=== PATIENT | female | born 1995 | race Asian ===

== ENCOUNTER 2017-03-12 23:22 | Emergency (ER) | payer OTHER ==
[2017-03-13] MEDS ORDERED: Acetaminophen TAB* 325 MG PO ONE (01:56)
[2017-03-13] MEDS ORDERED: Ibuprofen TAB* 600 MG PO ONE (01:56)
[2017-03-13] MEDS ORDERED: Amoxicillin PO (*) 500 MG CAP PO ONE (01:56)
--- NOTE | 2017-03-13 02:00 | ED ---
Throat Pain/Nasal Congestion - HPI Summary HPI Summary: 21 female presents to ED with complaints of sore throat, fever and body aches that began yesterday and has worsened today. Patient has been taking Tylenol with last dose being around 2pm 03/12/17 that does improve fever, however it comes back. Denies difficulty breathing, chest pain, coughing and vomiting. Admits to having difficulty swallowing due to pain but is able. Has been drinking. Unknown sick contacts. Does attend college at [place]. No other complaints. PMHx significant for thyroiditis. - History of Current Complaint Chief Complaint: EDFever Time Seen by Provider: 03/13/17 01:40 Hx Obtained From: Patient Onset/Duration: Lasting Days - 2, Still Present, Worse Since Severity: Moderate Associated Signs And Symptoms: Positive: Dysphagia Cough: None - Epiglottits Risk Factors Epiglottis Risk Factors: Negative - Allergies/Home Medications Allergies/Adverse Reactions: Allergies Allergy/AdvReac Type Severity Reaction Status Date / Time No Known Allergies Allergy Verified 03/12/17 23:26 PMH/Surg Hx/FS Hx/Imm Hx Endocrine/Hematology History: Reports: Hx Thyroid Disease - thyroiditis Denies: Hx Diabetes Respiratory History: Denies: Hx Asthma - Surgical History Surgery Procedure, Year, and Place: n/a - Immunization History Immunizations Up to Date: Yes Infectious Disease History: No Infectious Disease History: Denies: Traveled Outside the [place] in Last 30 Days - Family History Known Family History: Positive: None - Social History Alcohol Use: Occasionally Substance Use Type: Reports: None Smoking Status (MU): Never Smoked Tobacco Review of Systems Positive: Fever, Chills, Fatigue Eyes: Negative Positive: Sore Throat Cardiovascular: Negative Respiratory: Negative Gastrointestinal: Negative Musculoskeletal: Negative Skin: Negative Positive: Headache All Other Systems Reviewed And Are Negative: Yes Physical Exam Triage Information Reviewed: Yes Vital Signs On Initial Exam: Initial Vitals Temp Pulse Resp BP Pulse Ox 100.6 F 110 16 119/62 100 03/12/17 23:24 03/12/17 23:24 03/12/17 23:24 03/12/17 23:24 03/12/17 23:24 temp noted, given tylenol, tachycardia however strep + Vital Signs Reviewed: Yes Appearance: Positive: Well-Nourished, Ill-Appearing, Pain Distress - mild with swallowing Skin: Positive: Warm, Skin Color Reflects Adequate Perfusion, Dry. Negative: Cold, Cyanosis @, Pale, Erythema @ Head/Face: Positive: Normal Head/Face Inspection Eyes: Positive: EOMI, SENAIT, Conjunctiva Clear ENT: Positive: Hearing grossly normal, Pharyngeal erythema, TMs normal, Tonsillar swelling, Tonsillar exudate, Other - airway patent, no sign of peritonsillar abscess. Negative: TM bulging, TM dull, TM red, Trismus, Muffled/ hoarse voice Dental: Positive: Cervical Lymphadenopathy Neck: Positive: Supple, Nontender Respiratory/Lung Sounds: Positive: Clear to Auscultation, Breath Sounds Present. Negative: Rales, Rhonchi, Wheezes Cardiovascular: Positive: Normal, RRR, Pulses are Symmetrical in both Upper and Lower Extremities. Negative: Murmur, Rub Abdomen Description: Positive: Nontender, No Organomegaly, Soft Bowel Sounds: Positive: Present Musculoskeletal: Positive: Normal, Strength/ROM Intact Neurological: Positive: Normal, Sensory/Motor Intact, Alert, Oriented to Person Place, Time Psychiatric: Positive: Affect/Mood Appropriate - [place] Coma Scale Coma Scale Total: 15 Diagnostics - Vital Signs Vital Signs Temp Pulse Resp BP Pulse Ox 03/13/17 01:24 99.9 F 100 16 102/53 100 03/13/17 00:16 101.3 F 03/12/17 23:27 100.6 F 110 16 119/62 100 03/12/17 23:24 100.6 F 110 16 119/62 100 - Laboratory Lab Results: Lab Results 03/13/17 Range/Units 00:46 Group A Strep Rapid Positive H (Negative) Lab Statement: Any lab studies that have been ordered have been reviewed, and results considered in the medical decision making process. EENT Course/Dx - Course Course Of Treatment: according to [facility] criteria and with positive strep culture will treat for streptococcal phayrnigitis. Given tylenol while in ED and first dose of amoxicillin. continue at home. educated and instructed on proper alternating use of ibu/tylenol for fever/pain/body aches. fluids, gargle salt water, chloraseptic spray. aware of worsening signs and symptoms. follow up with pcp. no concern for any other complications of strep at this time, symptoms just began, young and healthy, no other complaints. recommended to take ibuprofen when she gets home, before bed. - Differential Diagnoses Differential Diagnoses: Influenza, Pharyngitis, Sinusitis, URI/Bronchitis - Diagnoses Provider Diagnoses: Strep pharyngitis Discharge - Discharge Plan Condition: Stable Disposition: HOME Prescriptions: Amoxicillin PO (*) [Amoxicillin 500 MG CAP*] 500 mg PO Q12H #19 cap Patient Education Materials: Strep Throat (ED) Forms: *School Release Referrals: Sapna Hart NP [Primary Care Provider] - Additional Instructions: Take prescribed antibiotic (amoxicillin) as directed for infection. one in morning and one at night. Eat vietnamese yogurt while taking this medication. Take until entire dose is finished, even if symptoms improve. Continue taking Advil and Tylenol alternating every 2 hours. Advil and then two hours later tylenol, while fever lasts for the next 2-3 days. They also help with pain. Recommend drinking plenty of fluids, cold foods/fluids to help soothe throat. Avoid hot and spicy food/drink. Recommend gargling with salt water a few times daily. Also may want to try Chloraseptic spray over the counter to help soothe sore throat. If you develop worsening symptoms or new symptoms please seek medical attention promptly, as discussed. Follow up with primary care provider to ensure improvement.
[2017-03-13 02:19] VITALS: BP 103/53
== END 2017-03-13 02:20 | disposition home or self-care (01) ==
LOC: ED 23:22
DX: J02.0 Streptococcal pharyngitis (principal); E06.9 Thyroiditis, unspecified
CPT/HCPCS: 87651; 99283; A9270-GY

== ENCOUNTER 2017-03-20 22:18 | Emergency (ER) | payer OTHER ==
[2017-03-21 02:46] LABS: Hematocrit 39 % (35-47); Hemoglobin 13.1 g/dl (12.0-16.0); Mean Corpuscular HGB Conc 34 g/dl (31-36); Mean Corpuscular Hemoglobin 28 pg (27-31); Mean Corpuscular Volume 84 fL (80-97); Mean Platelet Volume 8 um3 (7.4-10.4); Red Blood Count 4.62 10^6/ul (4.0-5.4); Red Cell Distribution Width 13 % (10.5-15); White Blood Count 10.4 10^3/ul (3.5-10.8)
[2017-03-21 02:56] LABS: Manual Entry Verification ABI0007; Mono Internal Control QC Line Present
[2017-03-21 03:01] LABS: Albumin 4.3 g/dL (3.2-5.2); C Reactive Protein 1.78 mg/L (< 5.00); Calcium 9.5 mg/dL (8.6-10.3); EGFR African American 156.3 (>60); EGFR Non-African American 121.5 (>60); Globulin 3.1 g/dL (2-4); Potassium 3.8 mmol/L (3.5-5.0); Total Bilirubin 0.7 mg/dL (0.2-1.0); Total Protein 7.4 g/dL (6.4-8.9)
[2017-03-21 03:15] LABS: TSH (Thyroid Stimulating Horm) 0.03 mcIU/mL (0.34-5.60)
[2017-03-21] MEDS ORDERED: Azithromycin TAB* 250 MG PO ONE (03:18)
--- NOTE | 2017-03-21 03:24 | ED ---
Tyler De Dios Benjamin, scribed for Wanda Sena MD on 03/21/17 at 0210 . Skin Complaint - HPI Summary HPI Summary: 21yo female who was dxed strep throat 1 week ago, with fever, fatigue, and weakness. Pt was rxed amoxicillin for her strep throat. Pt noticed red spots all over her body that itches few days after taking amoxicillin. Pt was recently dx with Sierra and hyperthyroidism and has an appointment scheduled with Dr. Wan Dennis next week. - History of Current Complaint Chief Complaint: EDRashSkinAbscess Time Seen by Provider: 03/21/17 01:17 Stated Complaint: RASH Hx Obtained From: Patient Onset/Duration: Started Days Ago, Atraumatic, Still Present Timing: Constant Onset Severity: Mild Current Severity: Moderate Pain Intensity: 0 Pain Scale Used: 0-10 Numeric Skin Location: Diffuse Character: Hives, Redness Aggravating Symptom(s): Nothing Alleviating Symptom(s): Nothing Associated Signs & Symptoms: Fever - Allergy/Home Medications Allergies/Adverse Reactions: Allergies Allergy/AdvReac Type Severity Reaction Status Date / Time No Known Allergies Allergy Verified 03/20/17 22:30 PMH/Surg Hx/FS Hx/Imm Hx Endocrine/Hematology History: Reports: Hx Thyroid Disease - thyroiditis Denies: Hx Diabetes Respiratory History: Denies: Hx Asthma - Surgical History Surgery Procedure, Year, and Place: n/a Infectious Disease History: No Infectious Disease History: Denies: Traveled Outside the [place] in Last 30 Days - Family History Known Family History: Positive: Diabetes - Social History Occupation: Student Lives: Alone Alcohol Use: Occasionally Substance Use Type: Reports: None Smoking Status (MU): Never Smoked Tobacco Review of Systems Positive: Fever. Negative: Chills Eyes: Negative Positive: Sore Throat Cardiovascular: Negative Respiratory: Negative Gastrointestinal: Negative Genitourinary: Negative Musculoskeletal: Negative Positive: Rash - diffuse red papular rash Neurological: Negative Psychological: Normal All Other Systems Reviewed And Are Negative: Yes Physical Exam Triage Information Reviewed: Yes Vital Signs On Initial Exam: Initial Vitals Temp Pulse Resp BP Pulse Ox 100.0 F 76 15 117/59 100 03/20/17 22:26 03/20/17 22:26 03/20/17 22:26 03/20/17 22:26 03/20/17 22:26 Vital Signs Reviewed: Yes Appearance: Positive: Well-Appearing, No Pain Distress, Well-Nourished Skin: Positive: Warm, Skin Color Reflects Adequate Perfusion, Dry, Other - diffuse erythematous papular rash Head/Face: Positive: Normal Head/Face Inspection Eyes: Positive: EOMI, SENAIT, Conjunctiva Clear ENT: Positive: Hearing grossly normal, Pharynx normal, Tonsillar swelling. Negative: Tonsillar exudate Neck: Positive: Supple, Nontender Respiratory/Lung Sounds: Positive: Clear to Auscultation, Breath Sounds Present Cardiovascular: Positive: RRR, Pulses are Symmetrical in both Upper and Lower Extremities Abdomen Description: Positive: Nontender, Soft Bowel Sounds: Positive: Present Musculoskeletal: Positive: Strength/ROM Intact Neurological: Positive: Sensory/Motor Intact, Alert, Oriented to Person Place, Time Psychiatric: Positive: Affect/Mood Appropriate - [place] Coma Scale Coma Scale Total: 15 Diagnostics - Vital Signs Vital Signs Temp Pulse Resp BP Pulse Ox 03/20/17 22:30 100.0 F 76 15 117/59 100 03/20/17 22:26 100.0 F 76 15 117/59 100 - Laboratory Lab Results: Lab Results 03/21/17 03/21/17 Range/Units 02:30 02:30 WBC 10.4 (3.5-10.8) 10^3/ul RBC 4.62 (4.0-5.4) 10^6/ul Hgb 13.1 (12.0-16.0) g/dl Hct 39 (35-47) % MCV 84 (80-97) fL MCH 28 (27-31) pg MCHC 34 (31-36) g/dl RDW 13 (10.5-15) % Plt Count 235 (150-450) 10^3/ul MPV 8 (7.4-10.4) um3 Neut % (Auto) 54.6 (38-83) % Lymph % (Auto) 33.4 (25-47) % Pickett % (Auto) 7.8 (1-9) % Eos % (Auto) 3.2 (0-6) % Baso % (Auto) 1.0 (0-2) % Absolute Neuts (auto) 5.7 (1.5-7.7) 10^3/ul Absolute Lymphs (auto) 3.5 (1.0-4.8) 10^3/ul Absolute Monos (auto) 0.8 (0-0.8) 10^3/ul Absolute Eos (auto) 0.3 (0-0.6) 10^3/ul Absolute Basos (auto) 0.1 (0-0.2) 10^3/ul Absolute Nucleated RBC 0 10^3/ul Nucleated RBC % 0 Sodium 137 (133-145) mmol/L Potassium 3.8 (3.5-5.0) mmol/L Chloride 105 (101-111) mmol/L Carbon Dioxide 26 (22-32) mmol/L Anion Gap 6 (2-11) mmol/L BUN 13 (6-24) mg/dL Creatinine 0.62 (0.51-0.95) mg/dL Est GFR ( Amer) 156.3 (>60) Est GFR (Non-Af Amer) 121.5 (>60) BUN/Creatinine Ratio 21.0 H (8-20) Glucose 93 (70-100) mg/dL Calcium 9.5 (8.6-10.3) mg/dL Total Bilirubin 0.70 (0.2-1.0) mg/dL AST 12 L (13-39) U/L ALT 10 (7-52) U/L Alkaline Phosphatase 49 (34-104) U/L C-Reactive Protein 1.78 (< 5.00) mg/L Total Protein 7.4 (6.4-8.9) g/dL Albumin 4.3 (3.2-5.2) g/dL Globulin 3.1 (2-4) g/dL Albumin/Globulin Ratio 1.4 (1-3) TSH 0.03 L (0.34-5.60) mcIU/mL Monoscreen Negative (Negative) Result Diagrams: 03/21/17 02:30 03/21/17 02:30 Lab Statement: Any lab studies that have been ordered have been reviewed, and results considered in the medical decision making process. Course/Dx - Course Course Of Treatment: Reviewed pts medication and allergy lists. Blood pressure noted. - Diagnoses Provider Diagnoses: Sierra's disease, Drug rash, Strep pharyngitis Discharge - Discharge Plan Condition: Stable Disposition: HOME Prescriptions: Azithromycin TAB* [Zithromax TAB (Z-GLORY) 250 mg #6 tabs] 250 mg PO DAILY #4 tab Patient Education Materials: Strep Throat (ED), Autoimmune Thyroid Disorders ( ED), Adverse Drug Reaction (ED) Referrals: Sapna Hart, DEEP [Primary Care Provider] - The documentation as recorded by the Tyler spears Benjamin accurately reflects the service I personally performed and the decisions made by me, Wanda Sena MD.
[2017-03-21 03:32] VITALS: BP 104/69
[2017-03-21 03:38] LABS: Urine Bilirubin Negative (Negative); Urine Glucose Negative (Negative); Urine Nitrite Negative (Negative)
== END 2017-03-21 03:31 | disposition home or self-care (01) ==
LOC: ED 22:18
DX: L27.0 Generalized skin eruption due to drugs and medicaments taken internally (principal); E06.3 Autoimmune thyroiditis; J02.0 Streptococcal pharyngitis
CPT/HCPCS: 36415; 80053; 81003; 84443; 85025; 86140; 86308; 87040; 99282; A9270-GY